=== PATIENT | female | born 1950 | race Caucasian/White ===

== ENCOUNTER 2018-12-09 08:28 | Day surgery (SDC) | payer MEDICARE ==
[2018-12-09] MEDS ORDERED: Midazolam 1 MG/ML 2 ML SDV ONE (08:36)
[2018-12-09] MEDS ORDERED: Propofol 200 MG/20 ML SDV ONE (08:36)
[2018-12-09] MEDS ORDERED: fentaNYL 100 MCG/2 ML SDV ONE (08:36)
[2018-12-09] MEDS ORDERED: Lactated Ringers 1,000 ML IV SCH (09:00)
--- NOTE | 2018-12-09 12:54 | OR ---
DATE OF PROCEDURE: 12/09/2018 PREOPERATIVE DIAGNOSIS: Colon cancer screening. POSTOPERATIVE DIAGNOSIS: Diverticulosis. PROCEDURE: Colonoscopy to the cecum. SURGEON: Olu Knight MD ANESTHESIA: IV anesthesia with monitored anesthesia care. INDICATION: This 68-year-old white female is referred for a colonoscopy for colon cancer screening. She says her last colonoscopic exam was done ten years ago. I counseled her for the procedure, including risks and alternatives, and she gave her informed consent to proceed. DESCRIPTION OF PROCEDURE: The patient was placed in the left lateral decubitus position. IV anesthesia was administered by the Anesthesia Service. Time-out was held. A rectal exam was performed, which was unremarkable. The flexible video Olympus colonoscope was introduced through her anus, up her rectum, and out her colon all the way to the cecum. Once the cecum was reached, the scope was slowly withdrawn, examining the mucosa throughout. A rare diverticulum was seen in the left and sigmoid colon areas. The scope was retroflexed in the rectum with the distal rectum appearing unremarkable, except for some minor hemorrhoidal tissue. The scope was straightened and removed. She tolerated the procedure well. Olu Knight MD /[id number] MTDD
== END 2018-12-09 12:04 | disposition home or self-care (01) ==
LOC: JP.SDS 08:28
PROVIDERS: ATTEND Surgery
DX: Z12.11 Encounter for screening for malignant neoplasm of colon (principal); K57.30 Diverticulosis of large intestine without perforation or abscess without bleeding; K64.9 Unspecified hemorrhoids; E78.5 Hyperlipidemia, unspecified; E03.9 Hypothyroidism, unspecified; E66.9 Obesity, unspecified; Z68.33 Body mass index [BMI] 33.0-33.9, adult
CPT/HCPCS: G0121; J2250; J2704; J3010; J7120

== ENCOUNTER 2019-10-08 16:59 | Emergency (ER) | payer MEDICARE ==
[2019-10-08] MEDS ORDERED: Sodium Chloride 0.9% 10 ML Syringe FLUSH PRN (17:17)
[2019-10-08] MEDS ORDERED: Acetaminophen 500 MG Tab PO ONE (17:17)
--- NOTE | 2019-10-08 17:23 | EDM.PDOC ---
ED HPI GENERAL MEDICAL PROBLEM - General Chief Complaint: General Stated Complaint: FEVER,CHILLS,CELLULITIS ON FACE Time Seen by Provider: 10/08/19 17:05 Source of Information: Reports: Patient, Old Records, Provider History Limitations: Reports: No Limitations - History of Present Illness INITIAL COMMENTS - FREE TEXT/NARRATIVE: 69 yo female was referred to the ER today for R facial swelling/redness and fever. Had a red nose for couple days then awoke today with the R side of her face involved plus a fever. Has not had any antipyretics today. Called the clinic this afternoon and was referred to the ER. 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: Other (see below) (none) - Related Data Allergies Allergy/AdvReac Type Severity Reaction Status Date / Time No Known Allergies Allergy Verified 10/08/19 17:25 Home Meds: Home Meds Cetirizine [ZyrTEC] 10 mg PO DAILY PRN 12/07/18 [History] Levothyroxine [Synthroid] 100 mcg PO ACBREAKFAST 12/07/18 [History] Simvastatin [Zocor] 20 mg PO BEDTIME 12/07/18 [History] Aspirin [Children's Aspirin] 81 mg PO DAILY 12/09/18 [History] Calcium Carbonate [Calcium] 1,200 mg PO DAILY 10/08/19 [History] Cholecalciferol (Vitamin D3) [Vitamin D3] 1,000 mcg PO DAILY 10/08/19 [History] cephALEXin [Cephalexin] 500 mg PO QID #40 capsule 10/08/19 [Rx] Past Medical History HEENT History: Reports: Impaired Vision Other HEENT History: wears glasses Cardiovascular History: Reports: High Cholesterol 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: Endocrine/Metabolic History: Reports: Hypothyroidism, Obesity/BMI 30+ Dermatologic History: Reports: Eczema - Infectious Disease History Infectious Disease History: Reports: Chicken Pox, Measles - Past Surgical History GI Surgical History: Reports: Appendectomy, Colonoscopy Female Surgical History: Reports: Tubal Ligation Neurological Surgical History: Reports: Lumbar Spine Social & Family History - Family History Family Medical History: Noncontributory - Caffeine Use Caffeine Use: Reports: Soda ED ROS GENERAL - Review of Systems Review Of Systems: See Below Constitutional: Reports: Fever, Chills HEENT: Reports: No Symptoms Respiratory: Reports: No Symptoms Cardiovascular: Reports: No Symptoms GI/Abdominal: Reports: No Symptoms : Reports: No Symptoms Musculoskeletal: Reports: No Symptoms Skin: Reports: Erythema (nose and R side of her face). Denies: Wound Neurological: Reports: No Symptoms ED EXAM, GENERAL - Physical Exam Exam: See Below Exam Limited By: No Limitations General Appearance: Alert, WD/WN, No Apparent Distress Eye Exam: Bilateral Eye: Normal Inspection Ears: Normal External Exam, Normal Canal, Hearing Grossly Normal, Normal TMs Ear Exam: Bilateral Ear: Auricle Normal, Canal Normal, TM normal Nose: Normal Inspection, No Blood Throat/Mouth: Normal Inspection, Normal Lips, Normal Oropharynx, Normal Voice, No Airway Compromise, Other (no dental pain) Head: Atraumatic, Normocephalic, Facial Swelling (R cheek area), Facial Tenderness (R side of face) Neck: Normal Inspection. No: Lymphadenopathy (R), Lymphadenopathy (L) Respiratory/Chest: No Respiratory Distress, Lungs Clear, Normal Breath Sounds, No Accessory Muscle Use Cardiovascular: Regular Rate, Rhythm, No Edema, Tachycardia GI/Abdominal: Normal Bowel Sounds, Soft, Non-Tender, No Distention Back Exam: Normal Inspection. No: CVA Tenderness (R), CVA Tenderness (L) Extremities: Normal Inspection, Normal Range of Motion, Non-Tender, No Pedal Edema Neurological: Alert, Oriented, CN II-XII Intact, Normal Cognition, No Motor/ Sensory Deficits Psychiatric: Normal Affect, Normal Mood Skin Exam: Warm, Dry, Intact, Normal Color, Erythema (R side of face and nose.) , Increased Warmth (nose and R side of face) Course - Vital Signs Last Recorded V/S: Last Vital Signs Temp 38.8 C H 10/08/19 17:27 Pulse 114 H 10/08/19 17:27 Resp 16 10/08/19 17:27 BP 174/90 H 10/08/19 17:27 Pulse Ox 96 10/08/19 17:27 - Orders/Labs/Meds Orders: Active Orders 24 hr Category Date Time Status CULTURE BLOOD [BC] Stat Lab 10/08/19 17:15 Received CULTURE BLOOD [BC] Stat Lab 10/08/19 17:25 Received Sodium Chloride 0.9% [Normal Saline] 1,000 ml Med 10/08/19 17:29 Active IV .BOLUS Sodium Chloride 0.9% [Saline Flush] Med 10/08/19 17:17 Active 10 ml FLUSH ASDIRECTED PRN cefTRIAXone [Rocephin] 2 gm Med 10/08/19 17:29 Active Sodium Chloride 0.9% [Normal Saline] 50 ml IV ONETIME Saline Lock Insert [OM.PC] Routine Oth 10/08/19 17:17 Ordered Medication Orders Ceftriaxone Sodium 2 gm/ (Sodium Chloride) 50 mls @ 100 mls/hr IV ONETIME ONE Stop: 10/08/19 17:58 Last Admin: 10/08/19 17:45 Dose: 100 mls/hr Sodium Chloride (Normal Saline) 1,000 mls @ 1,000 mls/hr IV .BOLUS ONE Stop: 10/08/19 18:28 Last Admin: 10/08/19 17:44 Dose: 1,000 mls/hr Sodium Chloride (Saline Flush) 10 ml FLUSH ASDIRECTED PRN PRN Reason: Keep Vein Open Last Admin: 10/08/19 17:45 Dose: 10 ml Labs: Laboratory Tests 10/08/19 10/08/19 10/08/19 Range/Units 17:25 17:25 17:25 WBC 10.7 (4.5-11.0) K/uL RBC 4.69 (3.30-5.50) M/uL Hgb 11.4 L (12.0-15.0) g/dL Hct 38.0 (36.0-48.0) % MCV 81 (80-98) fL MCH 24 L (27-31) pg MCHC 30 L (32-36) % Plt Count 344 (150-400) K/uL Sodium 136 L (140-148) mmol/L Potassium 4.0 (3.6-5.2) mmol/L Chloride 99 L (100-108) mmol/L Carbon Dioxide 29 (21-32) mmol/L Anion Gap 12.0 (5.0-14.0) mmol/L BUN 24 H (7-18) mg/dL Creatinine 1.3 H (0.6-1.0) mg/dL Est Cr Clr Drug Dosing 32.83 mL/min Estimated GFR (MDRD) 40 L (>60) Glucose 93 (74-106) mg/dL Lactic Acid 0.8 (0.4-2.0) mmol/L Calcium 10.1 (8.5-10.1) mg/dL Meds: Medications Generic Name Dose Route Start Last Admin Trade Name Freq PRN Reason Stop Dose Admin Ceftriaxone Sodium 2 gm/ 50 mls @ 100 mls/hr 10/08/19 17:29 10/08/19 17:45 Sodium Chloride IV 10/08/19 17:58 100 mls/hr ONETIME ONE Administration Sodium Chloride 1,000 mls @ 1,000 mls/hr 10/08/19 17:29 10/08/19 17:44 Normal Saline IV 10/08/19 18:28 1,000 mls/hr .BOLUS ONE Administration Sodium Chloride 10 ml 10/08/19 17:17 10/08/19 17:45 Saline Flush FLUSH 10 ml ASDIRECTED PRN Administration Keep Vein Open Discontinued Medications Generic Name Dose Route Start Last Admin Trade Name Freq PRN Reason Stop Dose Admin Acetaminophen 1,000 mg 10/08/19 17:17 10/08/19 17:33 Tylenol Extra Strength PO 10/08/19 17:18 1,000 mg ONETIME ONE Administration Departure - Departure Time of Disposition: 18:35 Disposition: Home, Self-Care 01 Condition: Fair Clinical Impression: Cellulitis of face - Discharge Information *PRESCRIPTION DRUG MONITORING PROGRAM REVIEWED*: No *COPY OF PRESCRIPTION DRUG MONITORING REPORT IN PATIENT BLAIR: No Prescriptions: cephALEXin [Cephalexin] 500 mg PO QID #40 capsule Referrals: Rose Marie Colvin PA [Primary Care Provider] - Forms: ED Department Discharge Additional Instructions: Take cephalexin as directed starting at suppertime tomorrow and take until gone. Take acetaminophen 1000 mg every 6 hrs for fever. Drink ample fluids. Recheck with your provider on Friday. Return if worse. Sepsis Event Note - Focused Exam Vital Signs: Vital Signs Temp Pulse Resp BP Pulse Ox 10/08/19 17:27 38.8 C H 114 H 16 174/90 H 96 10/08/19 17:15 38.8 C H 114 H 16 174/90 H 96 Date Exam was Performed: 10/08/19 Time Exam was Performed: 17:55 - My Orders Last 24 Hours: My Active Orders 10/08/19 17:15 CULTURE BLOOD [BC] Stat 10/08/19 17:17 Sodium Chloride 0.9% [Saline Flush] 10 ml FLUSH ASDIRECTED PRN Saline Lock Insert [OM.PC] Routine 10/08/19 17:25 CULTURE BLOOD [BC] Stat 10/08/19 17:29 Sodium Chloride 0.9% [Normal Saline] 1,000 ml IV .BOLUS cefTRIAXone [Rocephin] 2 gm Sodium Chloride 0.9% [Normal Saline] 50 ml IV ONETIME - Assessment/Plan Last 24 Hours: My Active Orders 10/08/19 17:15 CULTURE BLOOD [BC] Stat 10/08/19 17:17 Sodium Chloride 0.9% [Saline Flush] 10 ml FLUSH ASDIRECTED PRN Saline Lock Insert [OM.PC] Routine 10/08/19 17:25 CULTURE BLOOD [BC] Stat 10/08/19 17:29 Sodium Chloride 0.9% [Normal Saline] 1,000 ml IV .BOLUS cefTRIAXone [Rocephin] 2 gm Sodium Chloride 0.9% [Normal Saline] 50 ml IV ONETIME
[2019-10-08] MEDS ORDERED: cefTRIAXone 2 GM in Sodium Chloride 0.9% 50 ML IV ONE (17:29)
[2019-10-08] MEDS ORDERED: Sodium Chloride 0.9% 1,000 ML IV ONE (17:29)
== END 2019-10-08 18:37 | disposition home or self-care (01) ==
LOC: JP.ED 16:59
DX: L03.211 Cellulitis of face (principal); E78.00 Pure hypercholesterolemia, unspecified; E03.9 Hypothyroidism, unspecified; E66.9 Obesity, unspecified; Z68.31 Body mass index [BMI] 31.0-31.9, adult
CPT/HCPCS: 36415; 80048; 83605; 85027; 87040; 96365; 99283; A9270; J0696; J7030; J7050